=== PATIENT | male | born 1975 | race Caucasian/White ===

== ENCOUNTER 2022-01-23 20:31 | Emergency (ER) | payer BC, OTHER ==
[~2022-01-23] VITALS: Ht 185.4 cm; Wt 95.3 kg
[~2022-01-23 20:31] MED LIST: ALPR2TAB1 PO; BACTRIM; HYDR-5191 PO; [UNRECOGNIZED DRUG - CODE] PO
[2022-01-23 20:45] VITALS: BP 140/80
--- NOTE | 2022-01-23 20:48 | NUR ---
TO LOBBY A/W BED AMBULATORY
--- NOTE | 2022-01-23 21:32 | NUR ---
PT TAKEN TO BED 3
--- NOTE | 2022-01-23 22:10 | NUR ---
46 y/o male bibs from home, c/o dehydration and heat exhaustion x2 days. 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 pt states he has had a loss of apetite and during the day he was "sweating and then stopped." a/ox4, unlabored breathing, ambulatory w/o assistance. skin is pink /warm/dry. denies n/v/d, cough, fever, sob, or cp. pt states he "just needs a couple days to recover." denies hx/rx nka
--- NOTE | 2022-01-23 22:12 | NUR ---
Dr. Nicolas examining patient.
[2022-01-23 22:24] VITALS: BP 132/74
--- NOTE | 2022-01-23 22:26 | NUR ---
Patient discharged with v/s stable. Written and verbal after care instructions given and explained. Patient verbalized understanding. Ambulatory with steady gait. All questions addressed prior to discharge. Advised to follow up with PMD. VSS, A/OX4, UNLABORED BREATHING, AMBULATORY, AND CALM DEMEANOR.
== END 2022-01-23 22:26 | disposition home or self-care (01) ==
LOC: MED 20:31
DX: E86.0 Dehydration (principal)
CPT/HCPCS: 99281